=== PATIENT | female | born 1930 | race Caucasian/White ===

== ENCOUNTER 2021-03-30 16:22 | Emergency (ER) | payer MEDICARE, OTHER ==
[~2021-03-30] VITALS: Ht 162.6 cm; Wt 64.7 kg
--- NOTE | 2021-03-30 17:08 | NUR ---
PT HAS CO WEAKNESS AND FATIGUE IN MORNINGS FOR 1 WEEK. BETTER IN AFTERNOON. DENIES CP, SOB OR N/V OR FEVERS.
--- NOTE | 2021-03-30 17:45 | NUR ---
PT AMBULATED TO BATHROOM W STEADY GAIT FOR UA.
[2021-03-30 17:53] LABS: BASOPHILS % (AUTO) 0 % (0-1); EOSINOPHILS % (AUTO) 1 % (1-7); LYMPHOCYTES % (AUTO) 19 % (22-44); MEAN CORPUSCULAR HGB CONC 34.2 g/dL (32.4-35.8); MEAN PLATELET VOLUME 8.7 fL (7.4-10.4); MONOCYTES % (AUTO) 10 % (2-9); NEUTROPHILS % (AUTO) 70 % (42-75); PLATELET COUNT 253 x10^3/uL (130-400); RED BLOOD COUNT 4.39 x10^6/uL (3.82-5.3); RED CELL DISTRIBUTION WIDTH 13.5 % (9.6-15.2)
[2021-03-30 17:57] LABS: MICROSCOPIC INDICATED
[2021-03-30 18:03] LABS: ALBUMIN 3.6 g/dL (3.4-5.0); ANION GAP 7 mmol/L (5-15); CHLORIDE 103 mmol/L (98-107); CREATININE 0.86 mg/dL (0.55-1.02)
[2021-03-30 18:07] LABS: TROPONIN I < 0.015 ng/mL (0.000-0.045)
--- NOTE | 2021-03-30 18:51 | NUR ---
RECIEVED REPORT FROM MIGUEL GLYNN. TRANSFER OF CARE.
[2021-03-30] MEDS ORDERED: POTASSIUM CHLORIDE 20 MEQ PACKET ONE (18:53)
--- NOTE | 2021-03-30 18:59 | NUR ---
Patient is resting comfortably in bed. Bed in lowest, rails engaged, call light on lap. Vital Signs within normal limits. WCTM.
[2021-03-30] MEDS ORDERED: POTASSIUM CHLORIDE 20 MEQ PACKET PO ONE (19:00)
--- NOTE | 2021-03-30 19:27 | NUR ---
PT AMBULATED TO BATHROOM WITH STEADY GAIT WITH CANE
--- NOTE | 2021-03-30 20:04 | NUR ---
SPOKE TO ER MD ABOUT PT PLAN OF CARE. AWAITING LEGAL SUPPORT ANALYST TO CALL BACK IN ORDER TO HAVE A PLAN OF CARE SET INTO PLACE. EDUCATED PT ABOUT SITUATION AND THAT WE ARE AWAITING A CALL BACK FROM THE LEGAL SUPPORT ANALYST. PT RESTING IN BED. NADN. VSS. SON AT BEDSIDE. OFFERED DRINKS AND SNACKS BUT PT REFUSED. NO ADDITIONAL NEEDS OR QUESTIUONS AT THIS TIME.
[2021-03-30] MEDS ORDERED: APIXABAN 5 MG TABLET PO ONE (21:00)
[2021-03-30] MEDS ORDERED: APIXABAN 5 MG TABLET ONE (21:23)
--- NOTE | 2021-03-30 21:29 | NUR ---
Note nisha in ED - 03/30/21 at 2130 by [email or web address] pt leaving facility. no acute changes. nadn. no change in condition
--- NOTE | 2021-03-30 21:29 | NUR ---
Yarelis cameron in [facility] - 03/30/21 at 2130 by [email or web address] gave report to marino
[2021-03-30 21:32] VITALS: BP 121/80
--- NOTE | 2021-03-30 21:41 | NUR ---
Patient/Caregiver given discharge instructions and they have confirmed that they understand the instructions. Patient ambulatory with steady gait. NAD, all questions answered appropriately, denies additional needs at this time. No personal belongings left in room after discharge.
== END 2021-03-30 21:43 | disposition home or self-care (01) ==
LOC: ED 16:57
DX: I48.91 Unspecified atrial fibrillation (principal); N30.00 Acute cystitis without hematuria; I10 Essential (primary) hypertension
CPT/HCPCS: 36415; 71045; 80048; 81001; 82040; 83735; 84443; 84484; 85025; 87077; 87086; 87186; 93005; 99285